=== PATIENT | male | born 1960 | race Caucasian/White ===

== ENCOUNTER 2016-02-21 07:06 | Day surgery (SDC) | payer BC ==
[2016-02-20 09:47] VITALS: BMI 33.3
[~2016-02-21 07:06] MED LIST: LACTATED RINGERS 1,000 ML IV SCH
[2016-02-21] MEDS ORDERED: LACTATED RINGERS 1,000 ML IV ONE (07:11)
[2016-02-21 07:29] VITALS: TEMP 98.3
[2016-02-21 07:32] LABS: Glucose,Whole Blood 103 mg/dL (75-99)
[2016-02-21] MEDS ORDERED: LIDOCAINE 1% INJ 10MG/ML (20 ML MDV) ONE (07:35)
[2016-02-21] MEDS ORDERED: PROPOFOL 10 MG/ML 20 ML VIAL IV ONE (07:35)
--- NOTE | 2016-02-21 07:55 | P.PCN ---
Date of Procedure: 02/21/16 Procedure(s) Performed: BRIEF HISTORY: Patient is a 55-year-old pleasant white male, scheduled for an elective colonoscopy as a part of screening for colorectal neoplasia. PROCEDURE PERFORMED: Colonoscopy with snare polypectomy. PREOPERATIVE DIAGNOSIS: Screening for colon cancer. IV sedation per Anesthesia. PROCEDURE: After informed consent was obtained, the patient, was brought into the endoscopy unit. IV conscious sedation was administered by Anesthesia under continuous monitoring. Initially the Olympus CF-160 flexible video colonoscope was then inserted in the rectum, gradually advanced into the cecum without any difficulty. Careful examination was performed as the scope was gradually being withdrawn. Ileocecal valve and the appendiceal orifice were visualized and appeared normal. Prep was excellent. Mucosa of the cecum, ascending colon, transverse colon, descending colon, sigmoid colon, appeared normal. In the rectum and colon there were 2 polyps measuring 5 mm and 1 cm in size both of which were removed by snare polypectomy. The rectum appeared normal. Retroflexion was performed in the rectum and no lesions were seen. The patient tolerated the procedure well. IMPRESSION: 5 mm and 1 cm rectal sigmoid polyps status post polypectomy. Rest of the colon appeared normal. RECOMMENDATIONS: Findings of this examination were discussed with the patient as well as his family. he was advised to follow with the biopsy results. If the biopsy shows a tubular adenoma he can have a repeat colonoscopy in 5 years.
[2016-02-21 08:15] VITALS: BP 124/81; PULSE 73; RESP 18
== END 2016-02-21 09:10 | disposition home or self-care (01) ==
LOC: ORWHC2ENDO 07:06
PROVIDERS: ATTEND Internal Medicine Gastroenterology
DX: Z12.11 Encounter for screening for malignant neoplasm of colon (principal); D12.7 Benign neoplasm of rectosigmoid junction; K63.5 Polyp of colon; E11.9 Type 2 diabetes mellitus without complications; I10 Essential (primary) hypertension; F17.200 Nicotine dependence, unspecified, uncomplicated; Z79.84 Long term (current) use of oral hypoglycemic drugs; Z79.1 Long term (current) use of non-steroidal anti-inflammatories (NSAID); Z79.899 Other long term (current) drug therapy
CPT/HCPCS: 88305; 45385; J2001; J2704; 99153

== ENCOUNTER 2017-06-14 23:10 | Emergency (ER) | payer BC ==
[2017-06-14 23:18] VITALS: RESP 18
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
--- NOTE | 2017-06-15 01:41 | US ---
EXAM: US Duplex Right Lower Extremity Veins CLINICAL HISTORY: ITS.REASON US Reason: Pain TECHNIQUE: Real-time duplex ultrasound scan of the right lower extremity veins integrating B-mode two-dimensional vascular structure, Doppler spectral analysis, color flow Doppler imaging and compression. COMPARISON: None. FINDINGS: Deep veins: Unremarkable. No DVT in the visualized common femoral, femoral, proximal deep femoral or popliteal veins. The veins demonstrate normal color flow, are normally compressible, with normal phasic flow and/or augmentation response. Superficial veins: Unremarkable. No thrombus in the visualized great saphenous vein. Soft tissues: No acute findings. No popliteal cyst. IMPRESSION: Normal right lower extremity duplex venous ultrasound.
[2017-06-15 01:55] VITALS: TEMP 97.8
[2017-06-15 03:00] VITALS: BP 140/86; PULSE 74
== END 2017-06-15 02:45 | disposition home or self-care (01) ==
LOC: EC 23:10
DX: M79.661 Pain in right lower leg (principal); E11.9 Type 2 diabetes mellitus without complications; I10 Essential (primary) hypertension; M19.90 Unspecified osteoarthritis, unspecified site; Z87.891 Personal history of nicotine dependence; Z79.899 Other long term (current) drug therapy; Z79.1 Long term (current) use of non-steroidal anti-inflammatories (NSAID); Z79.84 Long term (current) use of oral hypoglycemic drugs; Z86.718 Personal history of other venous thrombosis and embolism
CPT/HCPCS: 99283

== ENCOUNTER → 2017-06-16 | Outpatient (CLI) | payer BC ==
[2017-06-16 09:24] LABS: Blood Urea Nitrogen 15 mg/dL (9-20)
--- NOTE | 2017-06-16 10:06 | CT ---
EXAMINATION TYPE: CT chest w con DATE OF EXAM: 06/16/2017 COMPARISON: NONE HISTORY: Chronic cough CT DLP: 751 mGycm Automated exposure control for dose reduction was used. CONTRAST: CT scan of the chest is performed with IV Contrast, patient injected with 100 ml mL of Isovue 300. FINDINGS: LUNGS: The lungs are grossly clear, there is no concerning parenchymal mass or nodule identified. T here is no pleural effusion or pneumothorax seen. The tracheobronchial tree is patent. MEDIASTINUM: There are no greater than 1 cm hilar or mediastinal lymph nodes. No pericardial effusi on is seen. Calcified subcarinal and left hilar lymph nodes are seen. OTHER: Hepatic steatosis noted. Splenic granuloma seen. There is a hyperdense lesion near the dome o f the liver measuring 1.5 cm which could represent focal fatty sparing or flash hemangioma. Hypertrop hic and degenerative change of the spine noted. IMPRESSION: 1. No acute intrathoracic process. No consolidative pneumonia. 2. Hepatic steatosis. There is a 1.5 cm hyperdense area within the dome of the liver which may repres ent focal fatty sparing or possibly flash hemangioma. Morphology favors fatty sparing. Correlate with ultrasound as clinically warranted. 3. Findings compatible with chronic granulomatous disease.
== END | disposition home or self-care (01) ==
LOC: RADCTMAIN 08:44
PROVIDERS: ATTEND Internal Medicine
DX: R05 Cough (principal)
CPT/HCPCS: 82565; 84520; 71260; 36415; Q9967

== ENCOUNTER → 2017-07-03 | Outpatient (CLI) | payer BC ==
--- NOTE | 2017-07-03 12:34 | US ---
EXAMINATION TYPE: US liver DATE OF EXAM: 07/03/2017 COMPARISON: NONE CLINICAL HISTORY: K76.0 FATTY LIVER. pt had a ct this month that showed fatty liver, no complaints of pain, larger habitus EXAM MEASUREMENTS: Liver Length: 17.7 cm Gallbladder Wall: 0.2 cm CBD: 0.6 cm Right Kidney: 11.4 x 4.5 x 5.8 cm Exam limitations due to overlying bowel gas. Pancreas: Obscured by bowel gas Liver: upper limitations in size, coarsened and hyperechoic hepatic echotexture, most commonly relat ed to underlying hepatic steatosis. This limits evaluation for underlying hepatic masses. No discrete hepatic masses seen on today's examination. Gallbladder: wnl Evidence for sonographic Lucas's sign: no CBD: wnl Right Kidney: wnl IMPRESSION: Sonographic findings most compatible with hepatic steatosis. The previously noted 1.5 cm hyperdense area in the dome of the liver is not demonstrated sonographically. Confirmation could be p erformed with three-phase abdominal CT or MR if oriented.
== END | disposition home or self-care (01) ==
LOC: RADUSWWP 11:25
PROVIDERS: ATTEND Internal Medicine
DX: K76.0 Fatty (change of) liver, not elsewhere classified (principal)
CPT/HCPCS: 76705

== ENCOUNTER 2017-08-12 14:40 | Inpatient (IN) | payer BC ==
--- NOTE | 2017-08-12 15:02 | US ---
EXAMINATION TYPE: US venous doppler duplex LE RT DATE OF EXAM: 08/12/2017 2:31 PM COMPARISON: US CLINICAL HISTORY: M79.661 RT CALF PAIN. Pt states right leg pain and tightness, previous DVT in LEFT leg approx 6 yrs ago SIDE PERFORMED: Right TECHNIQUE: The lower extremity deep venous system is examined utilizing real time linear array sonog tadeo with graded compression, doppler sonography and color-flow sonography. VESSELS IMAGED: External Iliac Vein (EIV) Common Femoral Vein Deep Femoral Vein Greater Saphenous Vein * Femoral Vein Popliteal Vein Small Saphenous Vein * Proximal Calf Veins (* superficial vessels) Grayscale, color doppler, spectral doppler imaging performed of the deep veins of the right lower ext remity. There is normal flow, compressibility, vascular waveforms. Right Leg: Positive for DVT, distal femoral vein, popliteal veins, and proximal calf veins Results called to Viky at Dr's office at time of exam IMPRESSION: Positive findings. Deep venous thrombosis within the distal femoral vein, popliteal vein and proximal calf veins of the right lower extremity. Results called to Viky at 's office at time of exam
[2017-08-12 16:56] LABS: Basophils # (A) 0.1 k/uL (0-0.2); Basophils % (A) 1 %; Eosinophils # (A) 0.5 k/uL (0-0.7); Eosinophils % (A) 4 %; HCT 46.5 % (39.0-53.0); Lymphocytes # (A) 2.3 k/uL (1.0-4.8); Lymphocytes % (A) 18 %; MCH 30.1 pg (25.0-35.0); MCHC 34.3 g/dL (31.0-37.0); MCV 87.8 fL (80.0-100.0); Mean Platelet Volume 7.4; Monocytes # (A) 0.7 k/uL (0-1.0); Monocytes % (A) 5 %; Neutrophils # (A) 9.3 k/uL (1.3-7.7); Neutrophils % (A) 72 %; Platelet Count 232 k/uL (150-450); RDW 13.8 % (11.5-15.5)
[2017-08-12 17:02] LABS: ALT 52 U/L (21-72); AST 32 U/L (17-59); Albumin 4.3 g/dL (3.5-5.0); Alkaline Phosphatase 56 U/L (38-126); Anion Gap 13 mmol/L; Blood Urea Nitrogen 16 mg/dL (9-20); Calcium 9.3 mg/dL (8.4-10.2); Carbon Dioxide 21 mmol/L (22-30); Chloride 107 mmol/L (98-107); Glucose 145 mg/dL (74-99); Potassium 4.4 mmol/L (3.5-5.1); Sodium 141 mmol/L (137-145); Total Bilirubin 0.5 mg/dL (0.2-1.3)
[2017-08-12 17:06] LABS: Partial Thromboplastin Time 22.8 sec (22.0-30.0)
--- NOTE | 2017-08-12 17:59 | CT ---
EXAMINATION TYPE: CT chest angio for PE DATE OF EXAM: 08/12/2017 COMPARISON: 06/16/2017 HISTORY: Chest pain and SOB CT DLP: 624 mGycm Automated exposure control for dose reduction was used. CONTRAST: CT Chest for pulmonary embolism performed with with IV Contrast, patient injected with 90 mL of Isovu e 370. FINDINGS: There are 3-D post processed images. There are linear filling defects within branches of the right lower lobe pulmonary artery posteriorly . There are also similar filling defects in the posterior basal segment left lower lobe pulmonary art telma. There are numerous calcified granulomata in the mediastinum. There is no mediastinal adenopathy. Thoracic aorta shows no sign of aneurysm or dissection. Ascending aorta measures 3.8 cm. Heart size is normal. Right ventricle appears normal. There is no evidence of heart failure. The lungs showed di ffuse interstitial density. There is no pleural effusion. There is some fatty infiltration of the geo er. The bony thorax appears intact. IMPRESSION: There are bilateral lower lobe pulmonary emboli. This exam was discussed with the ER physician at 5:5 0 PM. Interstitial nonspecific pulmonary infiltrates. This appears new compared to last exam and is consist ent with acute interstitial pneumonia.
[2017-08-12] MEDS ORDERED: NALOXONE 0.4 MG/ML 1 ML VIAL IV PRN (18:10)
[2017-08-12] MEDS ORDERED: HEPARIN SODIUM,PORCINE 5,000 UNIT/ML 1 ML VIAL IV STA (18:12)
[2017-08-12] MEDS ORDERED: HEPARIN SOD,PORK IN 0.45% NACL 25,000 UNIT in 0.45% NACL 1 500ML.BAG IV SCH (18:15)
[2017-08-12] MEDS ORDERED: HEPARIN SODIUM,PORCINE 5,000 UNIT/ML 1 ML VIAL IV PRN (18:41)
[2017-08-12] MEDS: HEPARIN SOD,PORK IN 0.45% NACL 25,000 UNIT in 0.45% NACL 1 500ML.BAG IV SCH (18:45)
[2017-08-12 20:18] LABS: Glucose,Whole Blood 82 mg/dL (75-99)
[2017-08-12] MEDS: HYDROcodone/APAP 5-325MG 1 EACH TAB PO PRN (22:13)
[2017-08-13] MEDS ORDERED: HEPARIN SODIUM,PORCINE 10,000 UNIT/ML 1 ML VIAL IV ONE (01:35)
[2017-08-13] MEDS: HYDROcodone/APAP 5-325MG 1 EACH TAB PO PRN ×3 (01:53→10:34)
[2017-08-13 06:06] VITALS: BP 118/78; RESP 18; TEMP 98.6
[2017-08-13 06:57] LABS: INR 1.1 (<1.2); Prothrombin Time 10.7 sec (9.0-12.0)
[2017-08-13 07:03] LABS: Glucose,Whole Blood 132 mg/dL (75-99)
[2017-08-13] MEDS ORDERED: LISINOPRIL 10 MG TAB PO SCH (09:00)
[2017-08-13] MEDS ORDERED: metFORMIN 500 MG TAB PO SCH (09:00)
[2017-08-13] MEDS ORDERED: LINAGLIPTIN 5 MG TABLET PO SCH (09:00)
[2017-08-13] MEDS ORDERED: MELOXICAM 7.5 MG TAB PO SCH (09:00)
[2017-08-13] MEDS: HEPARIN SOD,PORK IN 0.45% NACL 25,000 UNIT in 0.45% NACL 1 500ML.BAG IV SCH (09:16)
[2017-08-13] MEDS ORDERED: APIXABAN 5 MG TAB PO SCH (10:37)
--- NOTE | 2017-08-13 10:49 | P.DS ---
Providers Date of admission: 08/12/17 18:10 Attending physician: Taty Smith Primary care physician: Mickie Roa [facility] Course: Please refer to my HPI Plan - Discharge Summary Discharge Rx Participant: No New Discharge Prescriptions: New Apixaban [Eliquis] 10 mg PO BID #14 tab Apixaban [Eliquis] 5 mg PO BID #60 tab HYDROcodone/APAP 7.5-325MG [[place] 7.5-325] 1 tab PO Q4H PRN #18 tab PRN Reason: Pain No Action Meloxicam [Mobic] 7.5 mg PO DAILY sitaGLIPtin PHOS/metFORMIN HCL [Janumet 50-1,000 mg Tablet] 1 tab PO BID Lisinopril [Zestril] 10 mg PO DAILY Methocarbamol [Robaxin-750] 750 mg PO BID PRN PRN Reason: Pain Atorvastatin [Lipitor] 10 mg PO HS Discharge Medication List Lisinopril [Zestril] 10 mg PO DAILY 02/20/16 [History] Meloxicam [Mobic] 7.5 mg PO DAILY 02/20/16 [History] sitaGLIPtin PHOS/metFORMIN HCL [Janumet 50-1,000 mg Tablet] 1 tab PO BID [History] Atorvastatin [Lipitor] 10 mg PO HS 08/12/17 [History] Methocarbamol [Robaxin-750] 750 mg PO BID PRN 08/12/17 [History] Apixaban [Eliquis] 5 mg PO BID #60 tab 08/13/17 [Rx] Apixaban [Eliquis] 10 mg PO BID #14 tab 08/13/17 [Rx] HYDROcodone/APAP 7.5-325MG [[place] 7.5-325] 1 tab PO Q4H PRN #18 tab 08/13/17 [Rx ] Follow up Appointment(s)/Referral(s): Mickie Roa MD [Primary Care Provider] - 3 Days Discharge Disposition: HOME SELF-CARE
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
[2017-08-13 12:06] LABS: Glucose,Whole Blood 148 mg/dL (75-99)
[2017-08-13 12:07] VITALS: PULSE 71
[2017-08-14 12:51] LABS: Hemoglobin A1C 6.4 % (4.0-6.0)
== END 2017-08-13 13:45 | disposition home or self-care (01) | DRG 176 ==
LOC: EC 14:40 → 5MS5E 18:10
PROVIDERS: ADMIT Internal Medicine; ATTEND Internal Medicine
DX: I26.99 Other pulmonary embolism without acute cor pulmonale (principal); I82.411 Acute embolism and thrombosis of right femoral vein; I82.431 Acute embolism and thrombosis of right popliteal vein; I82.4Z1 Acute embolism and thrombosis of unspecified deep veins of right distal lower extremity; E11.9 Type 2 diabetes mellitus without complications; E66.9 Obesity, unspecified; E78.5 Hyperlipidemia, unspecified; I10 Essential (primary) hypertension; K21.9 Gastro-esophageal reflux disease without esophagitis; M19.90 Unspecified osteoarthritis, unspecified site; Z79.01 Long term (current) use of anticoagulants; Z79.899 Other long term (current) drug therapy; Z79.84 Long term (current) use of oral hypoglycemic drugs; Z68.37 Body mass index [BMI] 37.0-37.9, adult; Z86.718 Personal history of other venous thrombosis and embolism; Z80.9 Family history of malignant neoplasm, unspecified; Z82.61 Family history of arthritis; Z87.891 Personal history of nicotine dependence
CPT/HCPCS: 36415; 71275; 80053; 83036; 85025; 85610; 85730; 96365; 96376; 99285

== ENCOUNTER 2021-03-23 19:59 | Inpatient (IN) | payer BC ==
[2021-03-23] MEDS ORDERED: HYDROmorphone 1 MG/ML 1 ML SYRINGE IVP STA (20:15)
[2021-03-23] MEDS ORDERED: SODIUM CHLORIDE 0.9% 1,000 ML IV ONE (20:16)
[2021-03-23] MEDS ORDERED: ACETAMINOPHEN TAB 500 MG TAB PO STA (20:17)
[2021-03-23] MEDS ORDERED: NALOXONE 0.4 MG/ML 1 ML VIAL IV PRN (20:48)
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
[2021-03-23] MEDS ORDERED: ONDANSETRON 4 MG/2 ML VIAL IVP PRN (21:01)
[2021-03-23] MEDS ORDERED: IBUPROFEN 400 MG TAB PO PRN (21:01)
[2021-03-23] MEDS: SODIUM CHLORIDE 0.9% 1,000 ML IV SCH (22:25)
[2021-03-23] MEDS: PIPERACILLIN-TAZOBACTAM 3.375 GM in SODIUM CHLORIDE 0.9% 100 ML IVPB SCH (23:23)
[2021-03-24] MEDS: ACETAMINOPHEN TAB 325 MG TAB PO PRN (04:16)
[2021-03-24 06:24] LABS: Basophils # (A) 0.1 k/uL (0-0.2); Basophils % (A) 1 %; Eosinophils % (A) 0 %; HCT 44.1 % (39.0-53.0); HGB 15.1 gm/dL (13.0-17.5); Lymphocytes # (A) 1.2 k/uL (1.0-4.8); Lymphocytes % (A) 5 %; MCH 31.6 pg (25.0-35.0); MCHC 34.2 g/dL (31.0-37.0); MCV 92.5 fL (80.0-100.0); Mean Platelet Volume 8.1; Monocytes # (A) 0.9 k/uL (0-1.0); Monocytes % (A) 3 %; Neutrophils # (A) 23.4 k/uL (1.3-7.7); Neutrophils % (A) 91 %; Platelet Count 200 k/uL (150-450); RBC 4.77 m/uL (4.30-5.90); RDW 13.1 % (11.5-15.5); WBC 25.8 k/uL (3.8-10.6)
[2021-03-24] MEDS: SODIUM CHLORIDE 0.9% 1,000 ML IV SCH ×4 (06:29→22:47)
[2021-03-24 06:37] LABS: African American GFR (CKD) >90 (>60 ml/min/1.73 sqM); Anion Gap 9 mmol/L; Blood Urea Nitrogen 16 mg/dL (9-20); Calcium 8.8 mg/dL (8.4-10.2); Carbon Dioxide 22 mmol/L (22-30); Chloride 105 mmol/L (98-107); Glucose 128 mg/dL (74-99); Non-African American GFR(CKD) >90 (>60 ml/min/1.73 sqM); Potassium 3.6 mmol/L (3.5-5.1); Sodium 136 mmol/L (137-145)
[2021-03-24] MEDS: HYDROmorphone 1 MG/ML 1 ML SYRINGE IVP PRN ×4 (07:43→22:28)
[2021-03-24] MEDS: PIPERACILLIN-TAZOBACTAM 3.375 GM in SODIUM CHLORIDE 0.9% 100 ML IVPB SCH ×3 (07:59→23:46)
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
[2021-03-24 08:22] LABS: Glucose,Whole Blood 130 mg/dL (75-99)
[2021-03-24] MEDS ORDERED: BUPIVACAINE (PF) 0.25% 30 ML VIAL SQ ONE ×2 (08:48→09:27)
[2021-03-24] MEDS ORDERED: MIDAZOLAM 2 MG/2 ML VIAL ONE (08:58)
[2021-03-24] MEDS ORDERED: PHENYLEPHRINE-0.9% NACL SYG 1,000 MCG/10 ML SYRINGE ONE (08:58)
[2021-03-24] MEDS ORDERED: LIDOCAINE 1% INJ 10MG/ML (20 ML MDV) ONE (08:58)
[2021-03-24] MEDS ORDERED: NEOSTIGMINE 1 MG/ML 10 ML VIAL ONE (08:58)
[2021-03-24] MEDS ORDERED: PROPOFOL 10 MG/ML 20 ML VIAL IV ONE (08:58)
[2021-03-24] MEDS ORDERED: ROCURONIUM 10 MG/ML (5 ML VIAL) IV ONE (08:58)
[2021-03-24] MEDS ORDERED: fentaNYL (PF) 50 MCG/ML 2 ML AMP ONE (08:58)
[2021-03-24] MEDS ORDERED: GLYCOPYRROLATE 0.2 MG/ML 2 ML VIAL ONE (08:58)
[2021-03-24] MEDS ORDERED: SUCCINYLCHOLINE CHLORIDE 100 MG/5 ML SYR IV ONE (08:58)
[2021-03-24] MEDS: IV FLUID CONTINUATION 950 ML IV ONE ×2 (09:01→11:57)
[2021-03-24] MEDS ORDERED: SODIUM CHLORIDE 0.9% 1,000 ML IV ONE ×2 (09:01→10:41)
--- NOTE | 2021-03-24 10:05 | P.OP ---
Date of Procedure: 03/24/21 Preoperative Diagnosis: Perforated appendicitis Postoperative Diagnosis: Perforated appendicitis with abscess Procedure(s) Performed: Laparoscopic appendectomy Anesthesia: DUNCAN Surgeon: Marck Adrian Estimated Blood Loss (ml): 20 Pathology: other (Appendix) Condition: stable Disposition: PACU Description of Procedure: The patient's placed on the operating table in the supine position. The patient received general anesthesia. The abdomen was prepped and draped in the usual sterile fashion. The skin was anesthetized 1% local Xylocaine at the trocar sites. Using an 11 blade the skin was incised at the umbilicus. The umbilicus was grasped with a Wendy clamp and then a Veress needle was placed into the peritoneal cavity. Position of the Veress needle was confirmed with positive drop test. After adequate insufflation a 5 mm trocar was placed into the peritoneal cavity. The abdomen was further insufflated. And then the laparoscope was placed in the peritoneal cavity. Next a 5 mm trocar was placed in the midline suprapubic position. And then a 10 mm trocar was placed in the midline epigastric position. The patient was rotated with the right side up and in Trendelenburg. The appendix was visualized. The appendix appeared to be inf lamed. The appendix was adherent to the right lateral abdominal wall. The appendix was retracted. There was a small abscess cavity entered. This was aspirated. The appendix was grasped and then using the Harmonic scissors the mesoappendix was divided. A PDS Endoloop was then placed around the base of the appendix. And then the appendix was divided using Harmonic scissors. The appendix was placed into an Endo Catch and brought out through the 10 mm trocar site. The abdomen was irrigated. A CORKY drain is placed in the right lower quadrant and brought out through the epigastric incision. There is no bleeding seen. The trochars withdrawn. The skin was closed interrupted 3-0 Monocryl suture. Dermabond dressing was applied. Patient was sent to recovery room in stable condition.
[2021-03-24] MEDS ORDERED: HYDROmorphone 0.5 MG/0.5 ML SYRINGE IVP ONE ×4 (10:08→10:32)
[2021-03-24] MEDS ORDERED: ONDANSETRON 4 MG/2 ML VIAL IVP ONE (10:27)
[2021-03-24 12:19] LABS: Glucose,Whole Blood 146 mg/dL (75-99)
[2021-03-24] MEDS: lisinopriL 10 MG TAB PO SCH (13:40)
[2021-03-24] MEDS: PANTOPRAZOLE 40 MG/10 ML VIAL IVP SCH (13:40)
[2021-03-24] MEDS: INSULIN ASPART (NovoLOG) 100 UNIT/ML VIAL SQ SCH ×3 (13:42→20:31)
[2021-03-24 17:16] LABS: Glucose,Whole Blood 152 mg/dL (75-99)
[2021-03-24] MEDS: LINAGLIPTIN 5 MG TABLET PO SCH (17:45)
[2021-03-24] MEDS: metFORMIN 500 MG TAB PO SCH (17:45)
--- NOTE | 2021-03-24 19:33 | CONS ---
CONSULTATION REASON FOR CONSULTATION: Advice regarding diabetes mellitus and other medical issues, requested by Surgery. HISTORY OF PRESENT ILLNESS: This 60-year-old gentleman with a past medical history of diabetes mellitus, history of DVT, being followed by Dr. Roa in the outpatient setting, was admitted after laparoscopic appendectomy with perforated appendicitis and abscess. The patient was started on broad-spectrum IV antibiotics. There is no history of any chest pain, palpitations, headache, loss of consciousness, seizures. Patient is slightly drowsy after surgery. PAST MEDICAL HISTORY: Diabetes mellitus, DVT, GERD. HOME MEDICATIONS: Reviewed. They include omeprazole, Janumet and Eliquis. ALLERGIES: NONE. FAMILY HISTORY: History of factor V deficiency. SOCIAL HISTORY: History of smoking. REVIEW OF SYSTEMS: Review of systems could not be taken; the patient is mildly confused after surgery. PHYSICAL EXAMINATION: Pulse 108, blood pressure 137/80, respirations 16, temperature 97.6. HEENT: Conjunctivae normal. NECK: No jugular venous distention. CARDIOVASCULAR: S1, S2 muffled. RESPIRATION: Breath sounds diminished at the bases. A few scattered rhonchi. ABDOMEN: Soft. Status post surgery. LEGS: No edema. No swelling. NERVOUS SYSTEM: Higher functions as mentioned earlier. No focal deficit. JOINTS: No active deforming arthropathy. LABS: WBC 25.2. ASSESSMENT: 1. Acute perforated appendicitis with abscess, status post laparoscopic appendectomy. 2. Diabetes mellitus, type 2. 3. History of deep vein thrombosis. 4. Hypertension. 5. Hyperlipidemia. RECOMMENDATIONS AND DISCUSSION: I recommend to continue current medications, continue with the monitoring, symptomatic treatment. Resume the home medications. Monitor blood sugars closely. Accu-Cheks and insulin scale. I would also recommend broad-spectrum IV antibiotics. Follow cultures. Also recommend anticoagulants when deemed appropriate per Surgery. Further recommendations to follow. MMODL / IJN: [id number] /
[2021-03-24 20:24] LABS: Glucose,Whole Blood 149 mg/dL (75-99)
[2021-03-25] MEDS: HYDROmorphone 1 MG/ML 1 ML SYRINGE IVP PRN ×7 (02:11→21:08)
[2021-03-25] MEDS: SODIUM CHLORIDE 0.9% 1,000 ML IV SCH ×3 (05:14→15:29)
[2021-03-25 07:38] LABS: Glucose,Whole Blood 127 mg/dL (75-99)
[2021-03-25] MEDS: INSULIN ASPART (NovoLOG) 100 UNIT/ML VIAL SQ SCH ×4 (08:23→20:36)
[2021-03-25] MEDS: PIPERACILLIN-TAZOBACTAM 3.375 GM in SODIUM CHLORIDE 0.9% 100 ML IVPB SCH ×2 (08:29→15:37)
[2021-03-25] MEDS: LINAGLIPTIN 5 MG TABLET PO SCH (08:30)
[2021-03-25] MEDS: lisinopriL 10 MG TAB PO SCH (08:30)
[2021-03-25] MEDS: metFORMIN 500 MG TAB PO SCH ×2 (08:30→17:33)
[2021-03-25] MEDS: PANTOPRAZOLE 40 MG/10 ML VIAL IVP SCH (08:30)
[2021-03-25] MEDS: ENOXAPARIN 40 MG/0.4 ML SYRINGE SQ SCH (08:31)
[2021-03-25 09:03] LABS: Basophils # (A) 0.05 X 10*3/uL (0.00-0.10); Basophils % (A) 0.4 %; Eosinophils # (A) 0.08 X 10*3/uL (0.04-0.35); Eosinophils % (A) 0.6 %; HCT 41.7 % (39.6-50.0); Immature Grans, Automated 0.5 %; Lymphocytes # (A) 0.81 X 10*3/uL (0.90-5.00); Lymphocytes % (A) 5.8 %; MCH 30.6 pg (27.0-32.0); MCHC 33.6 g/dL (32.0-37.0); MCV 91.2 fL (80.0-97.0); Mean Platelet Volume 10.6 fL (9.5-12.2); Monocytes # (A) 0.46 X 10*3/uL (0.20-1.00); Monocytes % (A) 3.3 %; NRBC Per 100 WBC 0 /100 WBCS (0.0-0.0); Neutrophils # (A) 12.52 X 10*3/uL (1.80-7.70); Neutrophils % (A) 89.4 %; Platelet Count 195 X 10*3/uL (140-440); RBC 4.57 X 10*6/uL (4.40-5.60); RDW 13.6 % (11.5-14.5); WBC 13.99 X 10*3/uL (4.50-10.00)
[2021-03-25 09:04] LABS: African American GFR (CKD) 120.7 (60.0-200.0); Albumin 3.4 g/dL (3.8-4.9); Albumin/Globulin Ratio 1.59 (1.60-3.17); Anion Gap 12.1 mmol/L (10.00-18.00); BUN/Creat Ratio 16.48 Ratio (12.00-20.00); Blood Urea Nitrogen 11.5 mg/dL (9.0-27.0); Calcium 8.4 mg/dL (8.7-10.3); Carbon Dioxide 22.3 mmol/L (20.0-27.5); Globulin 2.1 g/dL (1.6-3.3); Non-African American GFR(CKD) 104.2 (60.0-200.0); Potassium 4.1 mmol/L (3.5-5.5); Total Bilirubin 0.7 mg/dL (0.30-1.20); Total Protein 5.5 g/dL (6.2-8.2)
[2021-03-25] MEDS: TAMSULOSIN 0.4 MG CAP.ER.24H PO SCH (11:55)
[2021-03-25 12:15] LABS: Glucose,Whole Blood 111 mg/dL (75-99)
--- NOTE | 2021-03-25 12:18 | P.PN ---
Progress Note - Text Progress Note Date: 03/25/21 Patient some complaints of incisional pain. On exam vital signs are stable. Abdomen soft. Status post laparoscopic appendectomy for acute appendicitis with abscess. Patient will Receive IV antibiotics. We dysphagia discharged home exploratory 48 hours.
--- NOTE | 2021-03-25 12:28 | XR ---
EXAMINATION TYPE: XR chest 1V portable DATE OF EXAM: 03/25/2021 COMPARISON: CT chest 06/16/2017 INDICATION: Short of breath TECHNIQUE: Single frontal view of the chest is obtained. FINDINGS: The heart size is normal. The pulmonary vasculature is normal. Mild left perihilar infiltrate is not excluded. Consider follow-up. IMPRESSION: 1. Suggests a minimal left suprahilar infiltrate. Follow-up chest study can be performed.
[2021-03-25 17:17] LABS: Glucose,Whole Blood 121 mg/dL (75-99)
--- NOTE | 2021-03-25 19:49 | PN ---
PROGRESS NOTE DATE OF SERVICE: 03/25/2021 This 60-year-old gentleman admitted with acute appendiceal perforation had surgery. No chest pain. No palpitations. No fever. PHYSICAL EXAMINATION: Pulse is 112, blood pressure 115/74, respirations 16, temperature 97.4. HEENT: Conjunctivae normal. NECK: No jugular venous distention. CARDIOVASCULAR: S1, S2 muffled. RESPIRATION: Breath sounds diminished at the bases. A few scattered rhonchi. ABDOMEN: Soft, status post surgery. LABS: Accu-Cheks 121. ASSESSMENT: 1. Acute perforated appendicitis with abscess, status post laparoscopic appendectomy. 2. Diabetes mellitus, type 2. 3. History of deep vein thrombosis. 4. Hypertension. 5. Hyperlipidemia. RECOMMENDATIONS AND DISCUSSION: I recommend to continue current medications, continue with the monitoring, symptomatic treatment. Portable chest x-ray. MMODL / IJN: [id number] /
[2021-03-25] MEDS: IPRATROPIUM-ALBUTEROL 3 ML NEB INHALATION SCH (20:11)
[2021-03-25 20:26] LABS: Glucose,Whole Blood 126 mg/dL (75-99)
[2021-03-26] MEDS: PIPERACILLIN-TAZOBACTAM 3.375 GM in SODIUM CHLORIDE 0.9% 100 ML IVPB SCH ×3 (00:03→16:37)
[2021-03-26] MEDS: HYDROmorphone 1 MG/ML 1 ML SYRINGE IVP PRN ×6 (00:03→22:02)
[2021-03-26] MEDS: SODIUM CHLORIDE 0.9% 1,000 ML IV SCH ×3 (05:33→22:55)
[2021-03-26 07:27] LABS: Glucose,Whole Blood 172 mg/dL (75-99)
[2021-03-26] MEDS: LINAGLIPTIN 5 MG TABLET PO SCH (07:54)
[2021-03-26] MEDS: ENOXAPARIN 40 MG/0.4 ML SYRINGE SQ SCH (07:54)
[2021-03-26] MEDS: lisinopriL 10 MG TAB PO SCH (07:54)
[2021-03-26] MEDS: metFORMIN 500 MG TAB PO SCH ×2 (07:54→17:55)
[2021-03-26] MEDS: TAMSULOSIN 0.4 MG CAP.ER.24H PO SCH (07:54)
[2021-03-26] MEDS: INSULIN ASPART (NovoLOG) 100 UNIT/ML VIAL SQ SCH ×4 (07:55→20:13)
[2021-03-26] MEDS: polyethylene glycoL 3350 17 GM POWD.PACK PO SCH (07:55)
[2021-03-26] MEDS: DOCUSATE 100 MG CAP PO SCH ×2 (07:55→21:32)
[2021-03-26] MEDS: PANTOPRAZOLE 40 MG TABLET PO SCH (07:56)
[2021-03-26] MEDS: SODIUM CHLORIDE 0.9% 500 ML IV SCH ×3 (07:56→09:21)
[2021-03-26] MEDS: IPRATROPIUM-ALBUTEROL 3 ML NEB INHALATION SCH ×3 (09:04→20:29)
[2021-03-26] MEDS ORDERED: NA PHOS,M-B/NA PHOS,DI-BA 133 ML ENEMA RECTAL ONE (10:00)
[2021-03-26] MEDS ORDERED: ALPRAZolam 0.25 MG TAB PO PRN (10:59)
[2021-03-26] MEDS: METOPROLOL TARTRATE 12.5 MG TAB PO SCH ×2 (11:51→21:32)
[2021-03-26 12:48] LABS: Basophils % (A) 0 %; Eosinophils # (A) 0.2 k/uL (0-0.7); Eosinophils % (A) 1 %; HCT 47.3 % (39.0-53.0); Lymphocytes % (A) 6 %; MCH 31.7 pg (25.0-35.0); MCHC 33.8 g/dL (31.0-37.0); MCV 93.7 fL (80.0-100.0); Mean Platelet Volume 7.9; Monocytes # (A) 0.5 k/uL (0-1.0); Monocytes % (A) 3 %; Neutrophils # (A) 14.3 k/uL (1.3-7.7); Neutrophils % (A) 89 %; Platelet Count 304 k/uL (150-450); RBC 5.05 m/uL (4.30-5.90); RDW 13.1 % (11.5-15.5); WBC 16.2 k/uL (3.8-10.6)
[2021-03-26 12:49] LABS: Glucose,Whole Blood 138 mg/dL (75-99)
--- NOTE | 2021-03-26 12:49 | P.PN ---
Subjective Progress Note Date: 03/26/21 CHIEF COMPLAINT: Perforated appendicitis with abscess HISTORY OF PRESENT ILLNESS: Status post laparoscopic appendectomy. Postop day #2. Patient complaining of constipation. He also was tachycardic. EKG showed sinus tach with heart rate 150. He is distended. Complaining of abdominal pain. Denies any nausea or vomiting. Medicine service did order a fluid bolus for the tachycardia. Afebrile. Labs pending. Patient seen and examined with Dr. de jesus PHYSICAL EXAM: VITAL SIGNS: Reviewed. GENERAL: Well-developed in no acute distress. HEENT: No sclera icterus. Extraocular movements grossly intact. Moist buccal mucosa. Head is atraumatic, normocephalic. ABDOMEN: Distended. Diffuse tenderness. PRATEEK drain with 170ml serosanguineous output throughout the day yesterday. NEUROLOGIC: Alert and oriented. Cranial nerves II through XII grossly intact. ASSESSMENT: 1. Perforated appendicitis with abscess status post laparoscopic appendectomy PLAN: -Continue IV fluids -Continue regular diet. Encourage patient to only eat a small amount -Fleet enema ordered for constipation -Continue antibiotics -Continue Colace and MiraLAX -Continue to monitor tachycardia Physician Cable Television Technician note has been reviewed by physician. Signing provider agrees with the documented findings, assessment, and plan of care. Objective - Vital Signs Vital signs: Vital Signs Temp 97.6 F 03/26/21 07:20 Pulse 134 H 03/26/21 09:18 Resp 18 03/26/21 07:20 BP 111/70 03/26/21 07:20 Pulse Ox 94 L 03/26/21 09:06 Intake & Output 03/25/21 03/26/21 03/26/21 18:59 06:59 18:59 Intake Total 1354 Output Total 100 Balance 1254 Intake: Intake, IV Titration 1000 Amount Piperacillin-Tazobactam 3 100 .375 gm In Sodium Chloride 0.9% 100 ml @ 25 mls/hr IVPB Q8HR GERMÁN Rx# :[id number] Sodium Chloride 0.9% 1, 900 000 ml @ 60 mls/hr IV . [id number] GERMÁN Rx#:[id number] Oral 354 Output: Drainage 100 prateek drain to abdomen 100 Other: Voiding Method Toilet # Voids 4 2 - Labs CBC & Chem 7: 03/25/21 06:12 03/25/21 06:12 Labs: Abnormal Lab Results - Last 24 Hours (Table) 03/25/21 03/25/21 03/26/21 Range/Units 17:16 20:25 07:26 POC Glucose (mg/dL) 121 H 126 H 172 H (75-99) mg/dL
[2021-03-26 13:17] LABS: African American GFR (CKD) >90 (>60 ml/min/1.73 sqM); Anion Gap 13 mmol/L; Blood Urea Nitrogen 17 mg/dL (9-20); Calcium 8.9 mg/dL (8.4-10.2); Carbon Dioxide 17 mmol/L (22-30); Chloride 106 mmol/L (98-107); Glucose 165 mg/dL (74-99); Non-African American GFR(CKD) >90 (>60 ml/min/1.73 sqM); Potassium 3.7 mmol/L (3.5-5.1); Sodium 136 mmol/L (137-145)
--- NOTE | 2021-03-26 14:48 | US ---
EXAMINATION TYPE: US venous doppler duplex LE DATE OF EXAM: 03/26/2021 2:17 PM COMPARISON: None CLINICAL HISTORY: 60-year-old male DVT. Patient stated has Factor V blood clotting disorder and is on Eliquis; post op for ruptured appendix SIDE PERFORMED: Bilateral TECHNIQUE: The lower extremity deep venous system is examined utilizing real time linear array sonog tadeo with graded compression, doppler sonography and color-flow sonography. VESSELS IMAGED: Common Femoral Vein Deep Femoral Vein Greater Saphenous Vein * Femoral Vein Popliteal Vein Small Saphenous Vein * Proximal Calf Veins (* superficial vessels) Right Leg: Thickened right CFV valves are noted. Rouleaux Effect is noted throughout deep venous sys tem, but veins compress throughout. Left Leg: Rouleaux Effect is noted throughout deep venous system, but veins compress throughout. IMPRESSION: 1. Slow flow throughout the bilateral lower extremity deep venous system. All vessels are compressibl e. No evidence for acute DVT. 2. Thickened valves at the level of the right CFV may represent sequela of some minimal chronic adher ent thrombus or some reactive hypertrophy.
--- NOTE | 2021-03-26 15:22 | PN ---
PROGRESS NOTE DATE OF SERVICE: 03/26/2021 This 60-year-old gentleman admitted with acute perforated appendicitis and as well as tachycardia. D-dimer is elevated up to 15. CT angio of the chest is being ordered for rule out pulmonary embolism. No chest pain. No palpitations. Past medical history reviewed. REVIEW OF SYSTEMS: Cardiovascular system: No angina. Respiratory: As mentioned earlier. GI: As mentioned earlier. CURRENT MEDICATIONS: Reviewed and include: Tylenol, DuoNeb, Xanax. Doses and other medications also reviewed. PHYSICAL EXAMINATION: Pulse 114, blood pressure 111/70, respiration 18, pulse ox 94% on room air. HEENT: Conjunctivae normal. Cardiovascular: S1, S2. Respiration: A few scattered rhonchi. Abdomen: Soft. Mild diffuse discomfort on palpation, status post recent surgery. Legs: No edema. No swelling. Nervous system: No focal deficits. LABS: WBC 16.8, hemoglobin 16, other labs are reviewed. ASSESSMENT: 1. Acute perforated appendicitis with abscess status post laparoscopic appendectomy. 2. Possible tachycardia, rule out pulmonary embolism. 3. Elevated D-dimer. 4. Diabetes mellitus, type 2. 5. History of deep vein thrombosis. 6. Hypertension. 7. Hyperlipidemia. RECOMMENDATIONS AND DISCUSSION: I recommend to continue current management and symptomatic treatment. Otherwise at this time, I recommend a CT angio of the chest and as well as ultrasound of the legs. The patient is on Lovenox at this time. Guarded prognosis because of multiple complex medical issues. Further recommendations to follow. Cardiology consultation. Closely follow with surgery. MMELSIE / LAURAN: [id number] /
[2021-03-26 17:26] LABS: Glucose,Whole Blood 106 mg/dL (75-99)
--- NOTE | 2021-03-26 18:02 | CT ---
EXAMINATION TYPE: CT chest angio for PE DATE OF EXAM: 03/26/2021 COMPARISON: CT dated 08/12/2017 HISTORY: Elevated d-dimer. Hx Factor 5. CT DLP: 376.90 mGy.cm. Automated Exposure Control for Dose Reduction was Utilized. TECHNIQUE AND CONTRAST: CTA scan of the thorax is performed with IV Contrast, patient injected with 100 mL of Isovue 370, pul monary embolism protocol. MIP Images are created on CT scanner and reviewed. FINDINGS: No definite filling defect within the pulmonary trunk, main pulmonary arteries, lobar and segmental b ranches to suggest pulmonary embolism. Distal subsegmental branches are suboptimally assessed. The pu lmonary trunk measures 2.9 cm. The ascending aorta measures up to 4.3 cm. No gross cardiomegaly. Thick consolidation is seen at the posterior aspect of the right lower lobe with air bronchograms wit hin, with smaller areas of consolidation at the posterior aspect of the right upper lobe and subsegme ntal atelectasis in the left lower lobe. This is nonspecific and could be related to repeated aspirat ion however acute infection cannot be excluded, please correlate clinically. Follow-up to complete re solution is advised. Patent central airways. No pleural effusion. Small pericardial fluid. Left lower chest wall soft tiss ue emphysema, please correlate clinically. Scattered arterial atherosclerotic calcification including coronary arterial calcifications. A tube/catheter apparently seen in the right upper quadrant, not c ompletely included in the scan. Questionable hypodense sludge within the gallbladder. Stable calcifie d subcarinal lymph nodes. No progressive lymphadenopathy in the chest. No aggressive bone lesion. IMPRESSION: No major or central pulmonary embolism. The described pulmonary areas of consolidation could be relat ed to recurrent aspiration however underlying pulmonary infection can't be excluded, please correlate clinically. Follow-up to complete resolution is advised. Other incidental findings as detailed above .
--- NOTE | 2021-03-26 19:43 | CDI ---
Documentation Clarification Form Date: 03/26/2021 07:26:51 PM From: Fara Rojas RN, CCDS Admit Date: 03/24/2021 01:46:00 PM Patient Name: Rene Treviño Visit Number: [id number] Discharge Date: ATTENTION: The Clinical Documentation Specialists (CDI) and [facility] Coding Staff appreciate your assistance in clarifying documentation. Please respond to the clarification below the line at the bottom and electronically sign. The CDI & [facility] Coding staff will review the response and follow-up if needed. Please note: Queries are made part of the Legal Health Record. If you have any questions, please contact the author of this message via ITS. Dr. Marck Adrian The patient presented on with the following clinical indicators. Temperature 102.0, pulse rate 105, WBC 25.8 ruled in for acute perforated appendicitis with abscess. Additional clarification regarding the etiology/cause of the clinical indicators is requested. History/Risk Factors: Diabetes mellitus DVT, Hypertension Clinical Indicators: 60-year-old male present for abdominal pain right lower quadrant. CT shows evidence of appendicitis with possible appendiceal rupture. 03/24 WBC: 25.8 03/23 Vital signs: 131/82 105 18 102.0 98 % RA 03/24 (02:33) 123/64 103 18 99.4 Treatment: Zosyn 3.375 GM IVPB Q 8 HRS .9NS 1,000 MLS Bolus 03/23 .9NS IV @ 16 MLS/HR 03/24 Laparoscopic appendectomy Monitor blood sugars accu-checks and insulin scale Monitor tachycardia In your professional opinion, please clarify if these findings signify one of the following conditions: [ ] Sepsis POA [ ] Sepsis ruled out [ ] Other, please specify [ ] Unable to determine SIRS Criteria: 2 or more of the following may indicate SIRS -Temperature < 96.8F (36C) or > 101.0F (38.3C) -Heart Rate > 90 bpm -Respiratory Rate > 20 breaths/min or PaCO2 < 32 mmHg -White Blood Cell Count > 12,000 or < 4,000 cells/mm3 or > 10% bands (Template Last Reviewed: March 2020) 4.Sepsis secondary to perforated appendicitis Dictated By: Belinda Coleman PA-C Signed By: <Electronically signed by Belinda Coleman PA-C> 03/28/21 1354 DD/ 1351 SULEIMAN
[2021-03-26 20:07] LABS: Glucose,Whole Blood 129 mg/dL (75-99)
[2021-03-27] MEDS: PIPERACILLIN-TAZOBACTAM 3.375 GM in SODIUM CHLORIDE 0.9% 100 ML IVPB SCH ×3 (00:05→16:48)
[2021-03-27] MEDS: HYDROmorphone 1 MG/ML 1 ML SYRINGE IVP PRN ×3 (01:30→14:32)
[2021-03-27 07:21] LABS: Glucose,Whole Blood 133 mg/dL (75-99)
[2021-03-27] MEDS: INSULIN ASPART (NovoLOG) 100 UNIT/ML VIAL SQ SCH ×4 (07:50→22:07)
[2021-03-27] MEDS: IPRATROPIUM-ALBUTEROL 3 ML NEB INHALATION SCH ×3 (08:05→20:57)
[2021-03-27] MEDS: TAMSULOSIN 0.4 MG CAP.ER.24H PO SCH (08:08)
[2021-03-27] MEDS: LINAGLIPTIN 5 MG TABLET PO SCH (08:08)
[2021-03-27] MEDS: polyethylene glycoL 3350 17 GM POWD.PACK PO SCH (08:09)
[2021-03-27] MEDS: metFORMIN 500 MG TAB PO SCH ×2 (08:09→16:48)
[2021-03-27] MEDS: ENOXAPARIN 40 MG/0.4 ML SYRINGE SQ SCH (08:09)
[2021-03-27] MEDS: lisinopriL 10 MG TAB PO SCH (08:09)
[2021-03-27] MEDS: PANTOPRAZOLE 40 MG TABLET PO SCH (08:09)
[2021-03-27] MEDS: DOCUSATE 100 MG CAP PO SCH ×2 (08:09→22:06)
[2021-03-27] MEDS: METOPROLOL TARTRATE 12.5 MG TAB PO SCH ×2 (08:09→19:50)
[2021-03-27 08:49] LABS: Basophils # (A) 0.1 k/uL (0-0.2); Basophils % (A) 0 %; Eosinophils # (A) 0.5 k/uL (0-0.7); Eosinophils % (A) 3 %; HCT 43.8 % (39.0-53.0); HGB 14.7 gm/dL (13.0-17.5); Lymphocytes # (A) 1.1 k/uL (1.0-4.8); Lymphocytes % (A) 7 %; MCH 31.2 pg (25.0-35.0); MCHC 33.6 g/dL (31.0-37.0); Mean Platelet Volume 7.5; Monocytes # (A) 0.6 k/uL (0-1.0); Monocytes % (A) 4 %; Neutrophils # (A) 12.5 k/uL (1.3-7.7); Neutrophils % (A) 84 %; Platelet Count 393 k/uL (150-450); RBC 4.72 m/uL (4.30-5.90); RDW 13.8 % (11.5-15.5); WBC 14.9 k/uL (3.8-10.6)
[2021-03-27 09:16] LABS: African American GFR (CKD) >90 (>60 ml/min/1.73 sqM); Anion Gap 6 mmol/L; Blood Urea Nitrogen 16 mg/dL (9-20); Calcium 8.7 mg/dL (8.4-10.2); Carbon Dioxide 23 mmol/L (22-30); Chloride 107 mmol/L (98-107); Glucose 158 mg/dL (74-99); Non-African American GFR(CKD) >90 (>60 ml/min/1.73 sqM); Potassium 3.8 mmol/L (3.5-5.1); Sodium 136 mmol/L (137-145)
[2021-03-27 12:14] LABS: Glucose,Whole Blood 108 mg/dL (75-99)
--- NOTE | 2021-03-27 14:04 | XR ---
EXAMINATION TYPE: XR chest 1V portable DATE OF EXAM: 03/27/2021 CLINICAL HISTORY: Difficulty breathing progress study. TECHNIQUE: Single AP portable frontal view of the chest is obtained. COMPARISON: Chest x-ray from 2 days earlier. CTA chest from yesterday. FINDINGS: Persistent low lung volumes and bibasilar opacities. Upper lungs remain clear. Cardiac siz e stable and within normal limits. Osseous structures are intact. IMPRESSION: Low lung volumes with bibasilar acute infiltrate and/or atelectasis redemonstrated. No si gnificant change from recent studies.
--- NOTE | 2021-03-27 15:01 | P.PN ---
Subjective Progress Note Date: 03/27/21 CHIEF COMPLAINT: Perforated appendicitis with abscess HISTORY OF PRESENT ILLNESS: Status post laparoscopic appendectomy. Postop day #3. Patient was able to have a bowel movement. She denies any abdominal pain. He has really remained tachycardic. Heart rate reaching up into the 140s. White count has trended down from 16-14. Medicine service is following closely they ruled out PE and DVT with CTA of the chest and venous Doppler. Patient denies any nausea vomiting. He is tolerating diet. Medicine service did add Lopressor. Afebrile. WBC 16.2 down to 14.9 hemoglobin 14.7 platelets 393 sodiu m 136 potassium 3.8 creatinine 0.71 lactic acid 0.9 CTA of the chest did describe pulmonary areas of consolidation could be related to recurrent aspiration however underlying pulmonary infection cannot be excluded. Patient seen and examined with Dr. de jesus PHYSICAL EXAM: VITAL SIGNS: Reviewed. GENERAL: Well-developed in no acute distress. HEENT: No sclera icterus. Extraocular movements grossly intact. Moist buccal mucosa. Head is atraumatic, normocephalic. ABDOMEN: Distended. Diffuse tenderness. PRATEEK drain with 20ml serosanguineous NEUROLOGIC: Alert and oriented. Cranial nerves II through XII grossly intact. ASSESSMENT: 1. Perforated appendicitis with abscess status post laparoscopic appendectomy 2. Constipation improved PLAN: -Consult infectious disease for concerns for possible sepsis -Continue IV fluids -Continue antibiotics -Continue to monitor tachycardia -Okay to resume Eliquis from surgical standpoint Physician Supervisor Sheet Manufacturing note has been reviewed by physician. Signing provider agrees with the documented findings, assessment, and plan of care. Objective - Vital Signs Vital signs: Vital Signs Temp 98.0 F 03/27/21 10:59 Pulse 97 03/27/21 10:59 Resp 20 03/27/21 10:59 BP 129/84 03/27/21 10:59 Pulse Ox 97 03/27/21 10:59 Intake & Output 03/26/21 03/27/21 03/27/21 18:59 06:59 18:59 Intake Total 840 Output Total 40 20 Balance 840 -40 -20 Intake: Intake, IV Titration 840 Amount Piperacillin-Tazobactam 3 100 .375 gm In Sodium Chloride 0.9% 100 ml @ 25 mls/hr IVPB Q8HR [facility] [place] Rx# :[id number] Sodium Chloride 0.9% 1, 240 000 ml @ 60 mls/hr IV . [id number] [facility] Rx#:[id number] Sodium Chloride 0.9% 500 500 ml @ 500 mls/hr IV .Q1H [facility] Rx#:[id number] Output: Drainage 40 20 prateek drain to abdomen 40 20 Other: Voiding Method Toilet # Voids 2 2 # Bowel Movements 1 - Labs CBC & Chem 7: 03/27/21 08:22 03/27/21 08:22 Labs: Abnormal Lab Results - Last 24 Hours (Table) 03/26/21 03/26/21 03/27/21 Range/Units 17:25 20:06 07:17 WBC (3.8-10.6) k/uL Neutrophils # (1.3-7.7) k/uL Sodium (137-145) mmol/L Glucose (74-99) mg/dL POC Glucose (mg/dL) 106 H 129 H 133 H (75-99) mg/dL 03/27/21 03/27/21 03/27/21 Range/Units 08:22 08:22 12:13 WBC 14.9 H (3.8-10.6) k/uL Neutrophils # 12.5 H (1.3-7.7) k/uL Sodium 136 L (137-145) mmol/L Glucose 158 H (74-99) mg/dL POC Glucose (mg/dL) 108 H (75-99) mg/dL Microbiology - Last 24 Hours (Table) 03/26/21 11:54 Blood Culture - Preliminary Blood No Growth after 24 hours
--- NOTE | 2021-03-27 15:04 | PN ---
PROGRESS NOTE DATE OF SERVICE: 03/27/2021 This 60-year-old gentleman admitted after surgery for perforated appendix is being closely monitored. The patient also developed some tachycardia and D-dimer was elevated. CT angio showed evidence of significant pneumonia on the left lower lobe. Venous Doppler was negative. Patient was started on broad-spectrum IV antibiotics and bronchodilators. Past medical history reviewed. REVIEW OF SYSTEMS: CARDIOVASCULAR SYSTEM: No angina. RESPIRATION: As mentioned earlier. GI: As mentioned earlier. : No dysuria. NERVOUS SYSTEM: As mentioned earlier. CURRENT MEDICATIONS: Reviewed. They include Tylenol, DuoNeb, Dilaudid, Motrin. PHYSICAL EXAMINATION: Alert and oriented x3. Pulse 97, blood pressure 129/84, respiration 20, temperature normal. HEENT: Conjunctivae normal. NECK: No jugular venous distention. CARDIOVASCULAR: S1, S2 muffled. RESPIRATION: Breath sounds diminished at the bases. A few scattered rhonchi. ABDOMEN: Soft. Status post surgery. LEGS: No edema. No swelling. NERVOUS SYSTEM: No focal deficit. LABS: Sodium 136. ASSESSMENT: 1. Acute perforated appendicitis with abscess, status post laparoscopic appendectomy. 2. Left lower lobe pneumonia, consolidation, possibly Gram-negative. 3. Tachycardia, possibly secondary to pneumonia. 4. Elevated D-dimer with no evidence of pulmonary embolism. 5. Diabetes mellitus, type 2. 6. History of deep vein thrombosis. 7. Hypertension. RECOMMENDATIONS AND DISCUSSION: I recommend to continue current medications, continue with the monitoring, symptomatic treatment. Otherwise, continue with the broad-spectrum IV antibiotics, bronchodilators, anticoagulants. Monitor blood sugars closely. Guarded prognosis. Further recommendations to follow. MMODL / IJN: [id number] /
[2021-03-27 17:35] LABS: Glucose,Whole Blood 98 mg/dL (75-99)
[2021-03-27] MEDS: ACETAMINOPHEN TAB 325 MG TAB PO PRN (19:49)
[2021-03-27] MEDS: APIXABAN 5 MG TAB PO SCH (19:49)
[2021-03-27 20:56] LABS: Glucose,Whole Blood 160 mg/dL (75-99)
[2021-03-28] MEDS: PIPERACILLIN-TAZOBACTAM 3.375 GM in SODIUM CHLORIDE 0.9% 100 ML IVPB SCH ×2 (03:06→08:59)
[2021-03-28 07:08] LABS: Glucose,Whole Blood 168 mg/dL (75-99)
[2021-03-28] MEDS: HYDROmorphone 1 MG/ML 1 ML SYRINGE IVP PRN (07:48)
[2021-03-28] MEDS: IPRATROPIUM-ALBUTEROL 3 ML NEB INHALATION SCH ×2 (08:11→11:41)
[2021-03-28] MEDS: metFORMIN 500 MG TAB PO SCH (08:27)
[2021-03-28] MEDS: PANTOPRAZOLE 40 MG TABLET PO SCH (08:27)
[2021-03-28] MEDS: LINAGLIPTIN 5 MG TABLET PO SCH (08:28)
[2021-03-28] MEDS: DOCUSATE 100 MG CAP PO SCH (08:28)
[2021-03-28] MEDS: TAMSULOSIN 0.4 MG CAP.ER.24H PO SCH (08:28)
[2021-03-28] MEDS: lisinopriL 10 MG TAB PO SCH (08:28)
[2021-03-28] MEDS: APIXABAN 5 MG TAB PO SCH (08:28)
[2021-03-28] MEDS: INSULIN ASPART (NovoLOG) 100 UNIT/ML VIAL SQ SCH ×2 (08:28→14:20)
[2021-03-28] MEDS: polyethylene glycoL 3350 17 GM POWD.PACK PO SCH (08:29)
[2021-03-28] MEDS: METOPROLOL TARTRATE 12.5 MG TAB PO SCH (08:29)
[2021-03-28 09:25] VITALS: BP 138/89; RESP 20; TEMP 98.1
[2021-03-28 09:29] LABS: Basophils # (A) 0.08 X 10*3/uL (0.00-0.10); Basophils % (A) 0.5 %; Eosinophils # (A) 0.61 X 10*3/uL (0.04-0.35); Eosinophils % (A) 4.1 %; HCT 39.1 % (39.6-50.0); HGB 13.3 g/dL (13.0-17.0); Immature Grans, Automated 1.3 %; Lymphocytes # (A) 1.66 X 10*3/uL (0.90-5.00); Lymphocytes % (A) 11.1 %; MCH 30.8 pg (27.0-32.0); MCV 90.5 fL (80.0-97.0); Mean Platelet Volume 9.6 fL (9.5-12.2); Monocytes # (A) 1.24 X 10*3/uL (0.20-1.00); Monocytes % (A) 8.3 %; NRBC Per 100 WBC 0 /100 WBCS (0.0-0.0); Neutrophils # (A) 11.15 X 10*3/uL (1.80-7.70); Neutrophils % (A) 74.7 %; Platelet Count 344 X 10*3/uL (140-440); RBC 4.32 X 10*6/uL (4.40-5.60); RDW 13.8 % (11.5-14.5); WBC 14.94 X 10*3/uL (4.50-10.00)
[2021-03-28 09:40] LABS: African American GFR (CKD) 120.6 (60.0-200.0); Albumin 3.1 g/dL (3.8-4.9); Albumin/Globulin Ratio 1.29 (1.60-3.17); Anion Gap 10.9 mmol/L (10.00-18.00); BUN/Creat Ratio 16.86 Ratio (12.00-20.00); Blood Urea Nitrogen 11.8 mg/dL (9.0-27.0); Calcium 8.5 mg/dL (8.7-10.3); Carbon Dioxide 24.1 mmol/L (20.0-27.5); Globulin 2.4 g/dL (1.6-3.3); Potassium 3.6 mmol/L (3.5-5.5); Total Bilirubin 0.4 mg/dL (0.30-1.20); Total Protein 5.5 g/dL (6.2-8.2)
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
[2021-03-28 11:57] VITALS: PULSE 85
[2021-03-28] MEDS ORDERED: FLUCONAZOLE 100 MG TAB PO SCH (12:00)
[2021-03-28 12:03] LABS: Glucose,Whole Blood 140 mg/dL (75-99)
--- NOTE | 2021-03-28 13:54 | P.DS ---
Providers Date of admission: 03/24/21 13:46 Expected date of discharge: 03/28/21 Attending physician: Marck Adrian Consults: 03/24/21 10:06 Consult Physician Routine Consulting Provider: Rhoda Sanches Consult Reason/Comments: Medical management Do you want consulting provider notified?: Yes 03/27/21 12:34 Consult Physician Routine Consulting Provider: Randolph Nunes Consult Reason/Comments: possible sepsis Do you want consulting provider notified?: Yes Primary care physician: Mickie Roa Hospital Course: Discharge diagnoses 1. Perforated appendicitis with abscess status post laparoscopic appendectomy 2. Constipation improved 3. Pneumonia 4. Sepsis secondary to perforated appendicitis Hospital course This is a 60-year-old male who was transferred from [facility]. He had complex of abdominal pain in the right lower quadrant. CT has shown evidence of appendicitis with possible rupture. Patient is status post laparoscopic appendectomy for perforated appendicitis. Patient's pain is controlled. He is tolerating diet. He is up and ambulating. He is having bowel movements and flatus. Afebrile. His tachycardia has resolved. Likely was due to sepsis from his perforated appendicitis. Patient also may have had some underlying pneumonia. He'll be discharged home with antibiotics. Patient cleared by medicine service for discharge. Incision sites clean dry and intact. Patient is stable for discharge. Please refer to chart for any further details. Physician Information Security Director note has been reviewed by physician. Signing provider agrees with the documented findings, assessment, and plan of care. Patient Condition at Discharge: Stable Plan - Discharge Summary Discharge Rx Participant: No New Discharge Prescriptions: New metroNIDAZOLE [Flagyl] 500 mg PO TID 10 Days #30 tab Tamsulosin [Flomax] 0.4 mg PO PC-BRKFST #30 tab Metoprolol Tartrate [Lopressor] 12.5 mg PO BID 30 Days #60 tab Acetaminophen Tab [Tylenol] 650 mg PO Q6HR PRN tab PRN Reason: Mild Pain Or Fever > 100.5 Levofloxacin [Levaquin] 500 mg PO DAILY 10 Days #10 tab HYDROcodone/APAP 5-325MG [[place] 5-325] 1 tab PO Q6HR PRN 3 Days #12 tab PRN Reason: Pain Continue sitaGLIPtin PHOS/metFORMIN HCL [Janumet 50-1,000 mg Tablet] 1 tab PO BID Lisinopril [Zestril] 10 mg PO DAILY Apixaban [Eliquis] 5 mg PO BID #60 tab Omeprazole 40 mg PO DAILY Apple Cider Vinegar Gummies 1 tab PO DAILY Multivitamins, Thera [Multivitamin (formulary)] 1 tab PO DAILY Discontinued Meloxicam [Mobic] 7.5 mg PO DAILY Discharge Medication List Lisinopril [Zestril] 10 mg PO DAILY 02/20/16 [History] sitaGLIPtin PHOS/metFORMIN HCL [Janumet 50-1,000 mg Tablet] 1 tab PO BID 02/20/16 [History] Apixaban [Eliquis] 5 mg PO BID #60 tab 08/13/17 [Rx] Apple Cider Vinegar Gummies 1 tab PO DAILY 03/23/21 [History] Multivitamins, Thera [Multivitamin (formulary)] 1 tab PO DAILY 03/23/21 [History] Omeprazole 40 mg PO DAILY 03/23/21 [History] Acetaminophen Tab [Tylenol] 650 mg PO Q6HR PRN tab 03/28/21 [Rx] HYDROcodone/APAP 5-325MG [[place] 5-325] 1 tab PO Q6HR PRN 3 Days #12 tab 03/28/21 [Rx] Levofloxacin [Levaquin] 500 mg PO DAILY 10 Days #10 tab 03/28/21 [Rx] Metoprolol Tartrate [Lopressor] 12.5 mg PO BID 30 Days #60 tab 03/28/21 [Rx] Tamsulosin [Flomax] 0.4 mg PO PC-BRKFST #30 tab 03/28/21 [Rx] metroNIDAZOLE [Flagyl] 500 mg PO TID 10 Days #30 tab 03/28/21 [Rx] Follow up Appointment(s)/Referral(s): Mickie Roa MD [Primary Care Provider] - 1-2 days Marck Adrian MD [STAFF PHYSICIAN] - 1 Week Activity/Diet/Wound Care/Special Instructions: No driving while taking [place] No lifting over 10 pounds You may shower. No soaking or tub baths for 2 weeks Very light activity until you are reevaluated at your follow up appointment with your surgeon Keep a log of CORKY drain output and bring with you to your follow-up appointment Milk/strip drains 2-3 times a day Discharge Disposition: HOME WITH HOME HEALTH SERVICES
--- NOTE | 2021-03-29 09:01 | P.PN ---
Subjective Progress Note Date: 03/28/21 03/28/2021 This is a 60-year-old male who was recently admitted with perforated appendix and had surgery and was being closely monitored. Patient with some tachycardia and d-dimer elevation and was started on low-dose metoprolol with improvement in heart rate. Patient underwent CT angiogram showing evidence of significant pneumonia on the left lower lobe and the venous Doppler was negative. Per p atient, he has a history of factor V and states his d-dimer is almost always elevated. Patient continues on IV antibiotics and we'll transition to oral antibiotics on discharge. Patient reports to passing gas and having bowel movements and denies abdominal pain. Patient has been up and walking multiple times and is anticipating being discharged today. Encouraged continuing current diet and slowly advancing as tolerated and continued incentive spirometer use at least 10 times every hour while awake. Review of systems: Constitutional: No reports of fatigue, fever, or chills Cardiovascular: No reports of chest pain or palpitations Respiratory: No reports of shortness of breath or cough GI: No reports of nausea, vomiting, or diarrhea : No reports of dysuria or retention Neurovascular: No reports of weakness or numbness All medications have been reviewed PHYSICAL EXAMINATION: GENERAL: The patient is alert and oriented x4, obese, Well developed, well nourished. HEENT: Pupils are round and equally reacting to light. EOMI. does have scleral icterus. No conjunctival pallor. Normocephalic, atraumatic. No pharyngeal erythema. No thyromegaly. CARDIOVASCULAR: S1 and S2 muffled PULMONARY: diminished breath sounds bilaterally with Few scattered rhonchi noted. ABDOMEN: soft. obese. Non-distended, normoactive bowel sounds. No palpable organomegaly. MUSCULOSKELETAL: No joint swelling or deformity. EXTREMITIES: No cyanosis, clubbing, or pedal edema. NEUROLOGICAL: Gross neurological examination did not reveal any focal deficits. SKIN: No rashes. Assessment: Acute perforated appendicitis with abscess, status post laparoscopic appendectomy Left lower lobe pneumonia, consolidation, possibly gram-negative Tachycardia possibly secondary to pneumonia Elevated d-dimer with no evidence of pulmonary embolism Diabetes mellitus type 2 History of deep vein thrombosis History of factor V Hypertension GI prophylaxis DVT prophylaxis Full code Plan: Recommend to continue with gentle IV hydration and IV antibiotics and close monitoring. Patient was started on low-dose metoprolol and recommend continue and encourage and instructed the patient to continue to monitor blood pressure and heart rate and follow-up with primary care provider on discharge. Recommend antibiotics on discharge and continue with current diet and slowly advance as tolerated. Patient also encouraged to continue using incentive spirometer at least 10 times every hour while awake as patient states he was only using it twice daily. Patient does have a past medical history of smoking prior to admi ssion and has not smoked in one week. Encouraged the patient to avoid restarting smoking. Will continue to follow along with surgery during hospitalization. Thank you for this consultation. The impression and plan of care has been dictated by Whit Burdick, nurse practitioner as directed. MD Vic I have performed a history and examination and MDM of this patient, discussed the same with the dictator, and agree with the dictator's assessment and plan as written ,documented as a scribe. Based on total visit time, I have performed more than 50% of the visit. Any additional findings or plans will be noted. Objective - Vital Signs Vital signs: Vital Signs Temp 98.5 F 03/28/21 02:10 Pulse 92 03/28/21 08:24 Resp 16 03/28/21 02:10 BP 135/72 03/28/21 02:10 Pulse Ox 94 L 03/28/21 08:12 Intake & Output 03/27/21 03/28/21 03/28/21 18:59 06:59 18:59 Output Total 20 Balance -20 Output: Drainage 20 prateek drain to abdomen 20 Other: # Voids 2 3 - Labs CBC & Chem 7: 03/28/21 05:58 03/28/21 05:58 Labs: Abnormal Lab Results - Last 24 Hours (Table) 03/27/21 03/27/21 03/27/21 Range/Units 08:22 12:13 20:54 Sodium 136 L (137-145) mmol/L Glucose 158 H (74-99) mg/dL POC Glucose (mg/dL) 108 H 160 H (75-99) mg/dL 03/28/21 Range/Units 07:07 Sodium (137-145) mmol/L Glucose (74-99) mg/dL POC Glucose (mg/dL) 168 H (75-99) mg/dL Microbiology - Last 24 Hours (Table) 03/26/21 11:54 Blood Culture - Preliminary Blood No Growth after 24 hours
== END 2021-03-28 15:52 | disposition home health service (06) | DRG 853 ==
LOC: EC 19:59 → 6NMEDSUR 20:48 → OBSVTOIN 03-24 13:46
PROVIDERS: ADMIT Surgery; ATTEND Surgery
PROC: 0DTJ4ZZ Resection of Appendix, Percutaneous Endoscopic Approach (ICD-10-PCS; principal; 2021-03-24 10:00)
DX: A41.9 Sepsis, unspecified organism (principal); K35.33 Acute appendicitis with perforation, localized peritonitis, and gangrene, with abscess; J15.6 Pneumonia due to other Gram-negative bacteria; I10 Essential (primary) hypertension; E11.9 Type 2 diabetes mellitus without complications; K59.00 Constipation, unspecified; Z79.84 Long term (current) use of oral hypoglycemic drugs; Z20.822 Contact with and (suspected) exposure to COVID-19; E78.5 Hyperlipidemia, unspecified; K38.1 Appendicular concretions; R00.0 Tachycardia, unspecified; R13.10 Dysphagia, unspecified; Z79.01 Long term (current) use of anticoagulants; Z79.1 Long term (current) use of non-steroidal anti-inflammatories (NSAID); Z86.711 Personal history of pulmonary embolism; Z87.891 Personal history of nicotine dependence; Z79.899 Other long term (current) drug therapy; Z86.718 Personal history of other venous thrombosis and embolism
CPT/HCPCS: 71045; 71275; 80048; 80053; 83605; 84484; 85025; 85379; 87040; 87635; 88304; 93970; 94640; 94760; 96374; 99285